=== PATIENT | male | born 1975 | race African-American/Black ===

== ENCOUNTER 2016-12-26 13:39 | Emergency (ER) | payer OTHER ==
[~2016-12-26] VITALS: Ht 182.9 cm; Wt 78.0 kg
--- NOTE | ~2016-12-26 | EKG ---
[address] [address] ELECTROCARDIOGRAM REPORT Name: YNES VIRAMONTES Room #: [facility]#: [id number] Admission: 12/26/16 Attend Phys: Discharge: 12/26/16 Date of : 71 Report #: [id number] THIS REPORT FOR: //name// [facility] ED Test Date: 2016-12-26 Test Time: 13:46:44 Pat Name: YNES VIRAMONTES Department: Room: Gender: Professor Of Physics: Sandra BLACKWELL : 1975 Requested By: Kinga Gay Order Number: [id number] MD: Daniel Lopez Measurements Intervals [place] Rate: 72 P: 38 FL: 130 QRS: 20 QRSD: 94 T: 17 QT: 406 QTc: 445 Interpretive Statements Sinus rhythm Abnormal R-wave progression, early transition Compared to ECG 09/30/2016 16:53:53 No significant changes Electronically Signed On 12-26-2016 16:57:55 CDT by Daniel Lopez [email or web address] <ELECTRONICALLY SIGNED> By: Daniel Lopez MD 12/26/16 1657 45 Daniel Lopez MD /[place]
[~2016-12-26 13:39] MED LIST: ANUSOL-HC25 MG RECTAL; ASPIR 8181 MG PO; LISINOPRIL20 MG PO; LISINOPRIL30 MG PO; LOVASTATIN 20 M20 MG PO; NIASPAN 500 MG500 M1 PO; NORCO 5-325 TA1 EACH PO; PRINZIDE 20-251 EACH PO; PROTONIX40 M1 PO; SIMVASTATIN40 MG PO; ZESTORETIC 20-1 EAC1 PO; ZOCOR20 MG PO
[2016-12-26 15:08] LABS: ABSOLUTE NEUTROPHILS 5.6 thou/uL (1.4-8.2); BASOPHILS 0.5 % (0.0-2.0); EOSINOPHILS 0.2 % (0.0-3.0); HEMATOCRIT 40.8 % (42.0-52.0); HEMOGLOBIN 13.8 gm/dL (14.0-18.0); LYMPHOCYTES 9.5 % (24.0-44.0); MCH 36.1 pg (26.0-34.0); MCHC 33.9 g/dL (28.0-37.0); MCV 106.5 fL (80.0-100.0); PLATELET COUNT 161 thou/uL (150-400); POLYS 80.8 % (36.0-66.0); RBC 3.83 mil/uL (4.50-6.00); RDW 15.2 % (10.5-14.5); WBC 6.9 thou/uL (4.0-11.0)
[2016-12-26 15:09] LABS: MANUAL DIFF NO
[2016-12-26 15:22] LABS: ANION GAP 12 mmol/L (7-16); BUN 4 mg/dL (7-18); CHLORIDE 98 mmol/L (98-107); CO2 22 mmol/L (21-32); CREATININE 0.8 mg/dL (0.7-1.3); GLUCOSE 104 mg/dL (74-106); POTASSIUM 4.7 mmol/L (3.5-5.1); SODIUM 132 mmol/L (136-145)
[2016-12-26 15:27] LABS: ALBUMIN 3.6 g/dL (3.4-5.0); ALKALINE PHOSPHATASE 138 U/L (46-116); NT-PRO BRAIN NAT PEPTIDE 136 pg/mL (<300); SGOT 286 U/L (15-37); SGPT 68 U/L (30-65); TOTAL BILIRUBIN 0.7 mg/dL (<0.1-1.0); TOTAL PROTEIN 7.8 g/dL (6.4-8.2); TROPONIN-I < 0.04 ng/mL (<0.04-0.07)
[2016-12-26] MEDS ORDERED: TYLENOL325 MG PO (16:12)
[2016-12-26] MEDS ORDERED: CLONIDINE0.1 PO (16:12)
[2016-12-26] MEDS ORDERED: PRILOSEC 20 MG20 MG PO (16:12)
[2016-12-26] MEDS ORDERED: ACETAMINOPHEN-1 EAC1 PO (16:19)
== END 2016-12-26 16:51 | disposition home or self-care (01) ==
LOC: ER 13:39
PROVIDERS: Nurse Practitioner Family
DX: I10 Essential (primary) hypertension (principal); F10.10 Alcohol abuse, uncomplicated; D53.9 Nutritional anemia, unspecified; K85.90 Acute pancreatitis without necrosis or infection, unspecified; R94.5 Abnormal results of liver function studies; F17.210 Nicotine dependence, cigarettes, uncomplicated; Z82.49 Family history of ischemic heart disease and other diseases of the circulatory system